=== PATIENT | female | born 1940 | race American Indian/Alaskan Native ===

== ENCOUNTER 2023-03-19 13:53 | Emergency (ER) | payer MEDICARE, OTHER ==
[2023-03-19] MEDS ORDERED: Lidocaine 1% w/Epinephrine 1:200K 30 ML VIAL ONE (15:04)
[2023-03-19] MEDS ORDERED: Boostrix 0.5 ML (Tdap) VIAL (>/=7 yrs of age) ONE (15:05)
[2023-03-19] MEDS ORDERED: Acetaminophen 325 MG TAB ONE (15:05)
[2023-03-19] MEDS ORDERED: Triple Antibiotic Oint 1 GM Packet ONE ×2 (16:11→16:25)
== END 2023-03-19 16:30 | disposition home or self-care (01) ==
LOC: CSHERS 13:53
DX: S01.91XA Laceration without foreign body of unspecified part of head, initial encounter (principal); S80.01XA Contusion of right knee, initial encounter; S80.02XA Contusion of left knee, initial encounter; Z23 Encounter for immunization; W01.0XXA Fall on same level from slipping, tripping and stumbling without subsequent striking against object, initial encounter; Y92.512 Supermarket, store or market as the place of occurrence of the external cause
CPT/HCPCS: 12013; 70450; 72125; 90471; 90715